=== PATIENT | female | born 1970 | race Caucasian/White ===

== ENCOUNTER 2017-03-06 23:39 | Emergency (ER) | payer OTHER ==
[2017-03-06 23:46] VITALS: BP 155/105
[2017-03-07] MEDS ORDERED: oxyCODONE/Acetamin 5/325 MG* TAB PO ONE (00:59)
--- NOTE | 2017-03-07 01:05 | ED ---
Lower Extremity - HPI Summary HPI Summary: Patient presents to ED with bilateral knee pain x 2 months. She states the knees have progressively gotten worse since she moved into an apt with stairs. Prior to the move she states she was in an apt with depression and didn't walk much. Now she is walking more and states the pain is 8/10 bilaterally on the knees, worse on the medial sides and radiates down to the shins. - History of Current Complaint Chief Complaint: EDExtremityLower Stated Complaint: R AND L KNEE PAIN Time Seen by Provider: 03/07/17 00:21 Hx Obtained From: Patient Mechanism Of Injury: Twisted Onset of Pain: Days Onset/Duration: Weeks Severity Initially: Moderate Severity Currently: Moderate Pain Intensity: 8 Pain Scale Used: 0-10 Numeric Timing: Constant Location: Is Discrete @ - bilateral knee pain Associated Signs And Symptoms: Positive: Knee Pain Aggravating Factor(s): Standing, Ambulation, Movement, Weight Bearing, Stairs Alleviating Factor(s): Rest Able to Bear Weight: Yes - Risk Factors Gout Risk Factors: Age Over 40, Male DVT Risk Factors: Negative Septic Arthritis Risk Factor: Negative - Allergies/Home Medications Allergies/Adverse Reactions: Allergies Allergy/AdvReac Type Severity Reaction Status Date / Time Hydrocodone [From Vicodin] Allergy Swelling Verified 03/06/17 23:47 Of Face,Lips,& Throat Penicillins Allergy Hives Verified 03/06/17 23:47 PMH/Surg Hx/FS Hx/Imm Hx Previously Healthy: Yes - Immunization History Hx Pertussis Vaccination: No Immunizations Up to Date: Yes Infectious Disease History: Unable to Obtain/Confirm Infectious Disease History: Denies: Traveled Outside the [place] in Last 30 Days - Social History Occupation: Employed Full-time Lives: With Family Alcohol Use: None Hx Substance Use: No Substance Use Type: Reports: None Hx Tobacco Use: No Smoking Status (MU): Never Smoked Tobacco Do You Chew or Dip Tobacco: No Review of Systems Constitutional: Negative Eyes: Negative Cardiovascular: Negative Respiratory: Negative Positive: no symptoms reported, see HPI Positive: Arthralgia - bilateral knee Skin: Negative Neurological: Negative All Other Systems Reviewed And Are Negative: Yes Physical Exam Triage Information Reviewed: Yes Vital Signs On Initial Exam: Initial Vitals Temp Pulse Resp BP Pulse Ox 98.7 F 66 16 155/105 97 03/06/17 23:41 03/06/17 23:41 03/06/17 23:41 03/06/17 23:41 03/06/17 23:41 Vital Signs Reviewed: Yes Appearance: Positive: Well-Appearing, Well-Nourished Skin: Positive: Warm, Skin Color Reflects Adequate Perfusion Eyes: Positive: EOMI, PHILIP, Conjunctiva Clear Neck: Positive: Supple, No Lymphadenopathy Respiratory/Lung Sounds: Positive: Clear to Auscultation, Breath Sounds Present Cardiovascular: Positive: Normal, RRR, Pulses are Symmetrical in both Upper and Lower Extremities Musculoskeletal: Positive: Normal, Strength/ROM Intact Neurological: Positive: Sensory/Motor Intact, Alert, Oriented to Person Place, Time, Speech Normal Psychiatric: Positive: Normal Diagnostics - Vital Signs Vital Signs Temp Pulse Resp BP Pulse Ox 03/06/17 23:41 98.7 F 66 16 155/105 97 - Laboratory Lab Statement: Any lab studies that have been ordered have been reviewed, and results considered in the medical decision making process. Lower Extremity Course/Dx - Course Course Of Treatment: Patient presents with bilateral knee pain. Knee pain has been present for 1 month or more. Worse medially. Patient is referred to Dr. Hernandez and educated about physical therapy, ibuprofen, tendinitis and healing time. 2 jodi wraps given. - Diagnoses Differential Diagnosis/HQI/PQRI: Positive: Sprain, Strain, Tendonitis Provider Diagnoses: Tendonitis of knee Discharge - Discharge Plan Condition: Stable Disposition: HOME Patient Education Materials: Knee Bursitis (ED), Tendinitis (ED) Referrals: Panfilo Wyman MD [Primary Care Provider] - Deep Hernandez MD [Medical Doctor] - Additional Instructions: Follow up with PCP. You have been referred to Dr. Hernandez. Please call tomorrow morning and get an appt. Wrap the knees daily for stability Ibuprofen 600mg three times daily with meals for any discomfort and inflammation.
== END 2017-03-07 01:19 | disposition home or self-care (01) ==
LOC: ED 23:39
DX: M76.9 Unspecified enthesopathy, lower limb, excluding foot (principal); Z88.0 Allergy status to penicillin; Z88.5 Allergy status to narcotic agent
CPT/HCPCS: 99282; A9270-GY